=== PATIENT | male | born 1935 | race Caucasian/White ===

== ENCOUNTER 2019-03-25 22:00 | Inpatient (IN) ==
[2019-03-25 23:41] LABS: BASO# 0.02 X1000 (0.0-0.2); BASO% 0.4 % (0.0-0.8); EOS# 0.14 X1000 (0.0-0.7); EOS% 3.1 % (0.0-10.0); HEMATOCRIT 31.7 % (42.0-52.0); HEMOGLOBIN 10.5 g/dL (14.0-18.0); LYMPH# 1.25 X1000 (1.2-3.4); LYMPH% 27.6 % (20.5-51.1); MCH 30.3 PG (27-31); MCHC 33.1 g/dL (33-37); MCV 91.4 FL (81-99); MONO# 0.46 X1000 (0.11-0.59); MONO% 10.2 % (1.7-9.3); MPV 9.7 FL (7.4-10.4); NEUT# 2.66 X1000 (1.4-6.5); NEUT% 58.7 % (42.2-75.2); PLT 196 X1000 (130-400); RBC 3.47 XMIL (4.7-6.1); RDW 13.1 % (11.5-14.5); WBC 4.53 X1000 (4.8-10.8)
[2019-03-26 00:20] LABS: AGAP 10; ALBUMIN 3.9 g/dL (3.5-5.0); ALKALINE PHOSPHATASE 53 U/L (32-122); BUN 25 mg/dL (8-22); CALCIUM 8.5 mg/dL (8.8-10.2); CHLORIDE 108 mmol/L (98-107); COSMO 284; CREATININE 1.1 mg/dL (0.7-1.2); ESTIMATED GFR > 60; GLUCOSE 96 mg/dL (70-104); GOT 19 U/L (10-34); GPT 11 U/L (10-44); POTASSIUM 3.8 mmol/L (3.5-5.1); SODIUM 140 mmol/L (136-145); TCO2 22 mmol/L (25-35); TOTAL PROTEIN 5.9 g/dL (6.3-8.3)
[2019-03-26 00:27] LABS: BILIRUBIN URINE NEGATIVE (NEGATIVE); BLOOD URINE NEGATIVE (NEGATIVE); GLUCOSE URINE NEGATIVE (NEGATIVE); KETONE URINE TRACE mg/dL (NEGATIVE); LEUKOCYTES URINE TRACE (NEGATIVE); NITRITE URINE NEGATIVE (NEGATIVE); PH URINE 6.5; PROTEIN URINE TRACE mg/dL (NEGATIVE); UROBILINOGEN URINE NORMAL
[2019-03-26 00:28] LABS: CLARITY CLEAR (CLEAR); COLOR YELLOW
[2019-03-26 00:30] LABS: URINE BACTERIA 2+ /HFP; URINE CRYSTAL NONE SEEN /HPF; URINE EPITHELIAL CELLS <10 /HPF (<10); URINE SOURCE CLEAN CATCH; URINE WBC <10 /HPF (<10); URINE YEAST NONE SEEN /HPF
--- NOTE | 2019-03-26 01:03 | PROVIDER DOCUMENTATION ---
This chart was entered by Nadine Cole Scribe, acting as scribe for Chiara Sorto MD. HPI-General Adult - General Chief Complaint: General Adult Stated Complaint: HURTING ALL OVER Time Seen by Provider: 03/25/19 22:41 Source: patient Allergies/Adverse Reactions: Patient Allergies Allergy/AdvReac Type Severity Reaction Status Date / Time diltiazem AdvReac RASH Verified 06/14/18 09:15 Home Medications: Home Medication List Medication Instructions Recorded Confirmed Last Taken Type Cholecalciferol (Vitamin D3) 1,000 unit PO DAILY 06/13/18 03/26/19 06/13/18 12:00 History [Vitamin D3] Diphenhydramine [Benadryl] 25 mg PO QHS PRN 06/13/18 03/26/19 06/13/18 21:00 History Fenofibrate 160 mg PO DAILY 06/13/18 03/26/19 06/13/18 07:00 History Folic Acid 1 mg PO DAILY 06/13/18 03/26/19 06/13/18 07:00 History Losartan Potassium [Cozaar] 25 mg PO DAILY 06/13/18 03/26/19 06/13/18 07:00 History Multivit-Min/FA/Lycopen/Lutein 1 each PO DAILY 06/13/18 03/26/19 06/13/18 07:00 History [Centrum Silver Tablet] [place]-3 Fatty Acids/Fish Oil [Fish 1 each PO DAILY 06/13/18 03/26/19 Unknown History Oil 1,000 mg Capsule] Oxycodone HCl/Acetaminophen 1 each PO Q6H PRN 06/13/18 03/26/19 06/12/18 12:00 History [Oxycodone-Acetaminophen 10-325] Ranitidine [Zantac] 150 mg PO BID 06/13/18 03/26/19 06/13/18 18:00 History Tamsulosin [Flomax] 0.4 mg PO DAILY 06/13/18 03/26/19 06/13/18 18:00 History Latanoprost 1 drp BOTH EYES DAILY 03/26/19 03/26/19 Unknown History Warfarin Sodium 3 mg PO QHS 03/26/19 03/26/19 Unknown History - History of Present Illness -Gen Adult Nature of Presenting Problems: 83 yom presents w/daughter at bedside w/cc body aches all over that are intermittent, cough w/minimal brown sputum, and chills x1 wk. pt hasn't taken otc meds. daughter sts pt cannot taken ibuprofen due to being on blood thinners. pt has hx of arthritis. pt followed by dr. fisher and hasn't made appt with her yet. pt was seen in er 1 wk ago for same symptoms. daughter sts her kids go visit pt and his at their home to make sure they're okay. daughter sts they haven't looked into placement w/assisted living or rehab for pt. 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 denies: fever, fatique, night sweats Eyes: reports: no symptoms reported Ears, Nose, Mouth & Throat: reports: no symptoms reported Cardiovascular: reports: no symptoms reported Respiratory: reports: no symptoms reported, cough (minimal productive cough, brown in color). denies: dyspnea on exertion, shortness of breath, wheezing Gastrointestinal: reports: no symptoms reported. denies: diarrhea, nausea, vomiting Genitourinary: reports: no symptoms reported Musculoskeletal: reports: see HPI, other (body aches all over). denies: frequent leg cramps, muscle weakness, neck pain Integumentary: reports: no symptoms reported Neurological: reports: no symptoms reported Psychiatric: reports: no symptoms reported Endocrine: reports: no symptoms reported Hematologic/Lymphatic: reports: no symptoms reported Allergic/Immunologic: reports: no symptoms reported All Other Systems: Reviewed and Negative Past History - Adult - PAST MEDICAL HISTORY-ADULT Review of Records: reports: Old Records Reviewed, Nursing Assessment Review, Medications Reviewed, Social history reviewed & non-contributory. Major Childhood Illnesses: reports: denies history Cardiovascular: reports: A-Fib, HTN Respiratory: reports: denies history Gastrointestinal: reports: denies history Obstetrical/Gynecological: reports: denies history Genitourinary: reports: denies history Musculoskeletal: reports: arthritis Neurological: reports: denies history, other (denies neuropathy) Endocrine/Immune: reports: denies history Other Conditions: reports: denies history - PRIOR SURGERIES/PROCEDURES Surgical/Procedure History: reports: tonsillectomy - IMMUNIZATION STATUS Childhood Immunizations: See Nurse Assessment Flu Vaccine: See Nurse Assessment - FAMILY HISTORY Family History: reviewed, not pertinent - SOCIAL HISTORY Smoking: other (former) Substance Use: none/never Physical Exam-General - PHYSICAL EXAM-ADULT Initial Vital Signs Reviewed: Yes - CONSTITUTIONAL General Appearance: appears well, alert, no apparent distress - EYES Eyes: PERRL/EOMI, pink conjunctivae - HEAD, EARS, NOSE, MOUTH & THROAT HENMT: normocephalic/atraumatic, normal ENT inspection, hearing deficit (left occular implant, pt [place]) - NECK Neck: non-tender, full range of motion, supple, normal inspection - RESPIRATORY Respiratory: chest non-tender, lungs clear, normal breath sounds, no respiratory distress, no accessory muscle use - CARDIOVASCULAR Cardiovascular: normal peripheral pulses, regular rate, rhythm - GASTROINTESTINAL (ABDOMEN) Abdominal Exam: normal bowel sounds, non tender, soft - LYMPHATIC Lymphatic: no adenopathy - MUSCULOSKELETAL Back Exam: normal inspection, no CVA tenderness, no vertebral tenderness Extremity: normal range of motion, non-tender, normal inspection Peripheral Pulses: radial (R): 2+, radial (L): 2+ - SKIN Integumentary: normal color, warm/dry - NEUROLOGIC Neurologic: senior buyer II-XII nml as tested, grossly normal, no motor/sensory deficits - PSYCHIATRIC Psych/Mental Status: normal mood/affect, normal thought content, normal thought process, oriented x 3 Progress - PLAN OF CARE/RESULTS Progress/Plan/Lab Results: Vital Signs - 8 hr 03/25/19 22:04 Temperature 98.1 F Pulse Rate 108 H Respiratory Rate 14 Blood Pressure 123/86 O2 Sat by Pulse Oximetry 98 Patient with slight increase in BUN to 25 and slight dehydration. he lives alone with his elderly who likely is unable to fully care for him. Daughter at bedside does not come over often and sends her teenage sons to check on him. Patient could be weak and deconditioned. Might benefit from inpatient PT evaluation and some iVF. Counseled patient on these options and both daughter and patient agree. Spoke to Dr Wall, who accepted patient for admission. Stable for floor. Result Diagrams: 03/25/19 23:28 03/25/19 23:28 Departure - Departure Date of Disposition Decision: 03/26/19 Time of Disposition Decision: 01:37 DIAGNOSIS: Dehydration, Weakness, Physical deconditioning Disposition: ADMITTED INPATIENT 09 Certified Medical Emergency: Emergent Condition: Stable - Critical Care Note This patient required my direct & personal management of CC.: No Attestation - Physician/ TRANG Attestation Patient care was provided by Advanced Practice Provider:: No The physician spent face to face time with patient:: Yes Advanced Practice Provider documentation review:: Supervising physician onsite and consulted in the evaluation and care of this patient. The physician did have a face to face encounter with the patient. This chart was documented by the indicated scribe, (Nadine Cole Scribe) and accurately reflects the services I performed and decisions made by me, Chiara Perkins MD, as attested by the provider's signature.
[2019-03-26] MEDS ORDERED: NS 1,000 ML IV ONE (01:51)
--- NOTE | 2019-03-26 07:43 | Diag Imaging Result Doc PS360 ---
EXAM: CHEST-PORTABLE - 03/25/2019 HISTORY: pain all over, cough TECHNIQUE: Portable chest COMPARISON: 03/15/2019 FINDINGS: Heart size is normal. There are scattered small granulomas from old granulomatous disease similar to prior. The lungs otherwise appear clear. There is no pleural effusion or pneumothorax identified. IMPRESSION: No evidence of acute disease. Electronically signed by Nathan Valenzuela 03/26/2019 7:41 AM
[2019-03-26 10:08] LABS: AGAP 9; BUN 19 mg/dL (8-22); CALCIUM 8.5 mg/dL (8.8-10.2); CHLORIDE 109 mmol/L (98-107); COSMO 287; CREATININE 0.9 mg/dL (0.7-1.2); ESTIMATED GFR > 60; GLUCOSE 91 mg/dL (70-104); POTASSIUM 3.8 mmol/L (3.5-5.1); SODIUM 143 mmol/L (136-145); TCO2 25 mmol/L (25-35)
[2019-03-26 10:20] LABS: INR 1.34; PROTIME 17.3 Seconds (11.0-16.0)
--- NOTE | 2019-03-26 14:36 | EKG Report ---
Test Performed on : 03/26/2019 2:01:57 PM Test Reason : TACHYCARDIA Blood Pressure : / mmHG Vent. Rate : 109 BPM Atrial Rate : 288 BPM P-R Int : 000 ms QRS Dur : 086 ms QT Int : 346 ms P-R-T Axes : 000 074 074 degrees QTc Int : 465 ms Atrial fibrillation. with rapid ventricular response. Abnormal ECG When compared with ECG of 13-JUN-2018 08:42, Atrial fibrillation. has replaced Junctional rhythm. Vent. rate has increased BY 44 BPM Confirmed by Santhosh Smith MD ([id number]) on 04/04/2019 9:41:01 PM
[2019-03-26] MEDS ORDERED: XOPENEX NEB INH SCH (15:30)
[2019-03-26] MEDS: ATROVENT NEB INH SCH ×3 (16:11→23:26)
[2019-03-26] MEDS ORDERED: LOPRESSOR IV ONE (16:47)
[2019-03-26] MEDS ORDERED: LOPRESSOR ONE (16:52)
--- NOTE | 2019-03-26 16:58 | HISTORY AND PHYSICAL ---
CHIEF COMPLAINT: I just hurt all over. HISTORY OF PRESENT ILLNESS: This is a an 83-year-old gentleman with a history of atrial fibrillation, hypertension and BPH who presents to the emergency room complaining of just aching and hurting all over. He states that he has had intermittent cough with brown sputum and chills over the prior week. He has taken no tksl-abz-xeccebb medications for this. He was seen in the emergency room on March 15 for the same. At that time he was diagnosed with arthritis of his left shoulder and knee and told to follow up with his primary care physician Dr. Cote which he has not done. Chest x-ray revealed no evidence of acute disease. He was afebrile. PAST MEDICAL HISTORY: Atrial fibrillation on chronic anticoagulation, hypertension, osteoarthritis. PAST SURGICAL HISTORY: Back and neck surgery, right shoulder surgery and ocular implants. SOCIAL HISTORY: He lives with his elderly . He does have a daughter with teenage children that live close and the teenage children check on him and his frequently to make sure they are okay. REVIEW OF SYSTEMS: Discussed with the patient with pertinent positives stated in the HPI. He denied any syncope or dizziness, any chest pain, palpitations, any recent weight loss or weight gain, any shortness of breath, cough, shortness of breath, any nausea, vomiting, diarrhea, constipation, any black or bloody vomitus or stools, any hematuria, dysuria, frequency, urgency. PHYSICAL EXAMINATION: GENERAL: This is a 83-year-old gentleman who is sitting up in the bed in no distress. VITAL SIGNS: Blood pressure is 134/84 with a heart rate of 76, respirations are 16, temperature is 98 degrees oral with room air saturations 100%. HEENT: Head is normocephalic, atraumatic. Mucous membranes are moist. NECK: Supple with trachea midline. PROBLEM LIST: 1. Atrial fibrillation with rapid ventricular response. p.o. Lopressor. 2. Bronchitis.Duonebs 3. Hypertension - home meds 4. chronic anticoagulation - daily INR, continue home meds 5. Dementia DVT prophylaxis - continue home med plan discussed with Dr Wall Dictated by DAVE Johnston for Ming Wall MD cc: DAVE Johnston MD [facility]
[2019-03-26] MEDS ORDERED: LOPRESSOR PO ONE (17:22)
[2019-03-26] MEDS: PERCOCET-10 PO PRN (18:24)
--- NOTE | 2019-03-26 19:14 | HISTORY AND PHYSICAL ---
Patient came in today for issues associated with his heart rate. The patient came in for evaluation. He has got pretty significant dementia, I believe, and then he was having issues with complaining of hurting all over. Apparently, he does have a history of atrial fibrillation with rapid ventricular response. This afternoon, day after admission, he had an episode of RVR with heart rates in the 150s. He required IV Lopressor to get his heart rate under control. This seems to be improving. PROBLEM LIST: 1. Atrial fibrillation with rapid ventricular response. We will initiate p.o. Lopressor. Reportedly, he is allergic to Cardizem so we cannot do that. 2. Bronchitis. I have changed his breathing treatments to p.r.n., just because of the wheezing. He has already been anticoagulated because he has got atrial fibrillation chronically. DISPOSITION: Pending his clinical status. We will continue to follow closely. This is a [id number]-[id number] encounter note with Yoanna Morales. cc: Ming Wall MD
[2019-03-26] MEDS: ZANTAC PO SCH (21:29)
[2019-03-26] MEDS: LOPRESSOR PO SCH (21:29)
[2019-03-26] MEDS: COUMADIN PO SCH (21:30)
[2019-03-27] MEDS: LOPRESSOR PO SCH ×4 (02:24→21:17)
[2019-03-27 07:15] LABS: BASO% 0.2 % (0.0-0.8); EOS# 0.14 X1000 (0.0-0.7); EOS% 3.1 % (0.0-10.0); HEMATOCRIT 33.5 % (42.0-52.0); HEMOGLOBIN 10.9 g/dL (14.0-18.0); IMM GRAN% 0.2 % (0.0-0.5); LYMPH# 1.08 X1000 (1.2-3.4); LYMPH% 24.1 % (20.5-51.1); MCH 29.7 PG (27-31); MCHC 32.5 g/dL (33-37); MCV 91.3 FL (81-99); MONO# 0.39 X1000 (0.11-0.59); MONO% 8.7 % (1.7-9.3); MPV 10.4 FL (7.4-10.4); NEUT# 2.85 X1000 (1.4-6.5); NEUT% 63.7 % (42.2-75.2); PLT 204 X1000 (130-400); RBC 3.67 XMIL (4.7-6.1); RDW 13.2 % (11.5-14.5); WBC 4.48 X1000 (4.8-10.8)
[2019-03-27 07:16] LABS: BASO# 0.01 X1000 (0.0-0.2); IMM GRAN# 0.01 X1000 (0.0-0.04)
[2019-03-27 07:28] LABS: AGAP 8; BUN 21 mg/dL (8-22); CALCIUM 8.3 mg/dL (8.8-10.2); CHLORIDE 110 mmol/L (98-107); COSMO 286; ESTIMATED GFR > 60; GLUCOSE 89 mg/dL (70-104); INR 1.25; POTASSIUM 4.2 mmol/L (3.5-5.1); PROTIME 16.3 Seconds (11.0-16.0); SODIUM 142 mmol/L (136-145); TCO2 24 mmol/L (25-35)
[2019-03-27] MEDS: ATROVENT NEB INH SCH ×5 (07:43→22:37)
[2019-03-27] MEDS: FLOMAX PO SCH (08:45)
[2019-03-27] MEDS: COZAAR PO SCH (08:45)
[2019-03-27] MEDS: FOLIC ACID PO SCH (08:45)
[2019-03-27] MEDS: VITAMIN D PO SCH (08:45)
[2019-03-27] MEDS: TRICOR PO SCH (08:45)
[2019-03-27] MEDS: FISH OIL CONCENTRATE PO SCH (08:45)
[2019-03-27] MEDS: THERA M PLUS PO SCH (08:45)
[2019-03-27] MEDS: XALATAN 0.005% OPH SOLN BOTH EYES SCH (08:46)
[2019-03-27] MEDS: ZANTAC PO SCH ×2 (08:46→21:17)
--- NOTE | 2019-03-27 19:59 | PROGRESS NOTE ---
DATE: 03/27/2019 SUBJECTIVE: The patient has no new complaints. PHYSICAL EXAM: Temperature 97.8, pulse 77, respiratory 18, BP 148/90.General: Patient is awake, alert. He is in no distress. HEENT: Normocephalic. Neck: Supple. Cardiovascular: Irregular rhythm currently rate controlled. Chest: Clear. Nonlabored. No wheezing. Abdomen: Soft, nondistended. Extremities: Moves all extremities. ASSESSMENT: 1. Atrial fibrillation with rapid ventricular response currently back to rate control. 2. Bronchitis. 3. Hypertension. 4. Dementia. PLAN: We will continue patient in the hospital today continue treatment. Hopefully, he can be discharged home over the next day or two. cc: Jack London MD
[2019-03-27] MEDS: COUMADIN PO SCH (21:17)
[2019-03-28] MEDS: PERCOCET-10 PO PRN (03:26)
[2019-03-28] MEDS: LOPRESSOR PO SCH ×3 (03:26→14:34)
[2019-03-28 07:03] LABS: INR 1.28; PROTIME 16.6 Seconds (11.0-16.0)
[2019-03-28 07:04] LABS: AGAP 9; BUN 20 mg/dL (8-22); CALCIUM 8.5 mg/dL (8.8-10.2); CHLORIDE 109 mmol/L (98-107); COSMO 285; CREATININE 1.1 mg/dL (0.7-1.2); ESTIMATED GFR > 60; GLUCOSE 89 mg/dL (70-104); POTASSIUM 4.1 mmol/L (3.5-5.1); SODIUM 142 mmol/L (136-145); TCO2 24 mmol/L (25-35)
[2019-03-28 07:13] LABS: BASO# 0.02 X1000 (0.0-0.2); BASO% 0.4 % (0.0-0.8); EOS# 0.18 X1000 (0.0-0.7); EOS% 3.2 % (0.0-10.0); HEMATOCRIT 34.5 % (42.0-52.0); HEMOGLOBIN 11.3 g/dL (14.0-18.0); IMM GRAN# 0.01 X1000 (0.0-0.04); IMM GRAN% 0.2 % (0.0-0.5); LYMPH# 1.45 X1000 (1.2-3.4); LYMPH% 25.5 % (20.5-51.1); MCH 29.7 PG (27-31); MCHC 32.8 g/dL (33-37); MCV 90.6 FL (81-99); MONO# 0.53 X1000 (0.11-0.59); MONO% 9.3 % (1.7-9.3); MPV 10.3 FL (7.4-10.4); NEUT# 3.49 X1000 (1.4-6.5); NEUT% 61.4 % (42.2-75.2); PLT 216 X1000 (130-400); RBC 3.81 XMIL (4.7-6.1); RDW 13.2 % (11.5-14.5); WBC 5.68 X1000 (4.8-10.8)
[2019-03-28] MEDS: ATROVENT NEB INH SCH ×5 (07:38→22:59)
[2019-03-28] MEDS: XOPENEX NEB INH PRN ×3 (07:38→14:46)
[2019-03-28] MEDS: ZANTAC PO SCH (09:59)
[2019-03-28] MEDS: FLOMAX PO SCH (09:59)
[2019-03-28] MEDS: FOLIC ACID PO SCH (09:59)
[2019-03-28] MEDS: COZAAR PO SCH (10:00)
[2019-03-28] MEDS: TRICOR PO SCH (10:00)
[2019-03-28] MEDS: VITAMIN D PO SCH (10:00)
[2019-03-28] MEDS: FISH OIL CONCENTRATE PO SCH (10:00)
[2019-03-28] MEDS: THERA M PLUS PO SCH (10:00)
[2019-03-28] MEDS: XALATAN 0.005% OPH SOLN BOTH EYES SCH (10:20)
[2019-03-28] MEDS ORDERED: BENADRYL IV PRN (18:43)
[2019-03-28] MEDS: HALDOL IV PRN (18:51)
--- NOTE | 2019-03-28 19:54 | PROGRESS NOTE ---
DATE: 03/28/2019 SUBJECTIVE: Patient has no complaints. States he is feeling fine. Denies any fevers or chills. PHYSICAL EXAMINATION: Temperature 98, pulse 88, respiratory 18, BP 140/88.General: Patient is awake, alert. He is in no distress. HEENT: Normocephalic. Neck: Supple. Cardiovascular: Irregular rhythm, regular rate. Chest: Clear, nonlabored. Abdomen: Soft, nondistended. Extremities: Moves all extremities. ASSESSMENT: 1. Atrial fibrillation. Currently, rate controlled. 2. Bronchitis. 3. Hypertension. 4. Dementia. PLAN: We will continue patient in the hospital. We will ask Credit Risk Manager for assistance on discharge planning to rehab and will follow. cc: Jack London MD
[2019-03-29] MEDS: BENADRYL IV PRN (01:41)
[2019-03-29] MEDS ORDERED: STERILE WATER INJ. INJ PRN (01:41)
[2019-03-29] MEDS: HALDOL IV PRN (01:42)
[2019-03-29] MEDS: LOPRESSOR PO SCH ×5 (01:45→20:06)
[2019-03-29] MEDS: ZANTAC PO SCH ×3 (01:46→20:06)
[2019-03-29] MEDS: COUMADIN PO SCH ×2 (01:46→20:06)
[2019-03-29] MEDS: ATIVAN IV PRN (02:02)
[2019-03-29 06:37] LABS: BASO# 0.01 X1000 (0.0-0.2); BASO% 0.2 % (0.0-0.8); EOS# 0.11 X1000 (0.0-0.7); EOS% 1.7 % (0.0-10.0); HEMATOCRIT 34.4 % (42.0-52.0); HEMOGLOBIN 11.2 g/dL (14.0-18.0); IMM GRAN# 0.01 X1000 (0.0-0.04); IMM GRAN% 0.2 % (0.0-0.5); LYMPH# 1.68 X1000 (1.2-3.4); LYMPH% 25.9 % (20.5-51.1); MCH 29.4 PG (27-31); MCHC 32.6 g/dL (33-37); MCV 90.3 FL (81-99); MONO# 0.61 X1000 (0.11-0.59); MONO% 9.4 % (1.7-9.3); MPV 10.6 FL (7.4-10.4); NEUT# 4.06 X1000 (1.4-6.5); NEUT% 62.6 % (42.2-75.2); PLT 210 X1000 (130-400); RBC 3.81 XMIL (4.7-6.1); RDW 13.3 % (11.5-14.5); WBC 6.48 X1000 (4.8-10.8)
[2019-03-29 06:53] LABS: INR 1.32
[2019-03-29 07:00] LABS: AGAP 10; BUN 17 mg/dL (8-22); CHLORIDE 110 mmol/L (98-107); COSMO 288; CREATININE 1.1 mg/dL (0.7-1.2); ESTIMATED GFR > 60; GLUCOSE 92 mg/dL (70-104); POTASSIUM 3.8 mmol/L (3.5-5.1); SODIUM 144 mmol/L (136-145); TCO2 24 mmol/L (25-35)
[2019-03-29] MEDS: VITAMIN D PO SCH (10:34)
[2019-03-29] MEDS: FLOMAX PO SCH (10:35)
[2019-03-29] MEDS: XALATAN 0.005% OPH SOLN BOTH EYES SCH (10:35)
[2019-03-29] MEDS: TRICOR PO SCH (10:35)
[2019-03-29] MEDS: FISH OIL CONCENTRATE PO SCH (10:35)
[2019-03-29] MEDS: THERA M PLUS PO SCH (10:35)
[2019-03-29] MEDS: COZAAR PO SCH (10:36)
[2019-03-29] MEDS: FOLIC ACID PO SCH (10:36)
[2019-03-29] MEDS: ATROVENT NEB INH SCH ×4 (16:08→23:53)
[2019-03-29] MEDS ORDERED: ARICEPT PO ONE (17:37)
--- NOTE | 2019-03-29 19:51 | PROGRESS NOTE ---
DATE: 03/29/2019 SUBJECTIVE: The patient has no new complaints. He does get agitated sometimes at night. OBJECTIVE: Temperature 98.3 degrees, pulse 83, respiratory 18, BP 170/65.General: The patient is awake and alert, currently in no distress. Cardiovascular: Regular rate. Chest clear, nonlabored. Abdomen soft, nondistended. Extremities: Moves all extremities. Neurologic: No changes. ASSESSMENT: 1. Dementia with behavioral changes. 2. Bronchitis, improved. 3. Hypertension. 4. Atrial fibrillation, currently rate-controlled. PLAN: We will continue the patient in the hospital. Continue to follow. Further orders as needed. Hopefully can transition to either rehab or [place]. cc: Jack London MD
[2019-03-29 20:15] LABS: BILIRUBIN URINE NEGATIVE (NEGATIVE); BLOOD URINE NEGATIVE (NEGATIVE); CLARITY CLEAR (CLEAR); COLOR YELLOW; GLUCOSE URINE NEGATIVE (NEGATIVE); KETONE URINE NEGATIVE (NEGATIVE); LEUKOCYTES URINE NEGATIVE (NEGATIVE); NITRITE URINE NEGATIVE (NEGATIVE); PH URINE 6.5; PROTEIN URINE NEGATIVE (NEGATIVE); SP GRAVITY URINE 1.015; UROBILINOGEN URINE NORMAL
[2019-03-29 20:48] LABS: URINE BACTERIA 1+ /HFP; URINE EPITHELIAL CELLS <10 /HPF (<10)
[2019-03-29 20:49] LABS: URINE CAST NONE SEEN /LPF; URINE CRYSTAL NONE SEEN /HPF; URINE SOURCE CLEAN CATCH; URINE WBC <10 /HPF (<10); URINE YEAST NONE SEEN /HPF
[2019-03-30] MEDS: LOPRESSOR PO SCH ×4 (03:37→21:00)
[2019-03-30] MEDS: ATROVENT NEB INH SCH ×5 (08:55→23:00)
[2019-03-30] MEDS: ZANTAC PO SCH ×2 (11:14→21:00)
[2019-03-30] MEDS: TRICOR PO SCH (11:14)
[2019-03-30] MEDS: COZAAR PO SCH (11:14)
[2019-03-30] MEDS: FISH OIL CONCENTRATE PO SCH (11:15)
[2019-03-30] MEDS: VITAMIN D PO SCH (11:15)
[2019-03-30] MEDS: ARICEPT PO SCH (11:15)
[2019-03-30] MEDS: THERA M PLUS PO SCH (11:15)
[2019-03-30] MEDS: FOLIC ACID PO SCH (11:15)
[2019-03-30] MEDS: FLOMAX PO SCH (11:15)
[2019-03-30] MEDS: XALATAN 0.005% OPH SOLN BOTH EYES SCH (14:13)
--- NOTE | 2019-03-30 19:26 | PROGRESS NOTE ---
DATE: 03/30/2019 SUBJECTIVE: The patient is sleeping this morning. He does arouse to stimuli. No complaints noted. PHYSICAL EXAMINATION: Vital Signs: Temperature 97.8 degrees, pulse 73, respiratory 18, blood pressure 155/80. General: Patient is awake, currently in no distress. He is asleep. He does arouse to stimuli. He is in no respiratory distress. HEENT: Normocephalic. Neck: Supple. Cardiovascular: Rate controlled. Chest: Clear, nonlabored, no wheezing. Good air movement. Abdomen: Soft, nondistended. Extremities: He is noted to move all extremities. Neurologic: Unable to assess due to patient's somnolence. ASSESSMENT: 1. Atrial fibrillation currently rate controlled. 2. Bronchitis stable. 3. Hypertension stable. 4. Dementia with behavioral disturbances. We started him on Aricept. We will ask Mimi Quijano for assistance. cc: Jack London MD
[2019-03-30] MEDS: COUMADIN PO SCH (20:30)
[2019-03-31] MEDS: PERCOCET-10 PO PRN ×2 (01:14→21:48)
[2019-03-31] MEDS: LOPRESSOR PO SCH ×4 (01:14→20:06)
[2019-03-31] MEDS: ATROVENT NEB INH SCH ×5 (07:33→22:57)
[2019-03-31] MEDS: ZANTAC PO SCH ×2 (08:35→20:06)
[2019-03-31] MEDS: THERA M PLUS PO SCH (08:35)
[2019-03-31] MEDS: COZAAR PO SCH (08:35)
[2019-03-31] MEDS: VITAMIN D PO SCH (08:35)
[2019-03-31] MEDS: ARICEPT PO SCH (08:35)
[2019-03-31] MEDS: FISH OIL CONCENTRATE PO SCH (08:36)
[2019-03-31] MEDS: FLOMAX PO SCH (08:36)
[2019-03-31] MEDS: FOLIC ACID PO SCH (08:36)
[2019-03-31] MEDS: XALATAN 0.005% OPH SOLN BOTH EYES SCH (08:36)
[2019-03-31] MEDS: TRICOR PO SCH (08:36)
[2019-03-31] MEDS ORDERED: XOPENEX NEB INH PRN (09:07)
--- NOTE | 2019-03-31 19:09 | PROGRESS NOTE ---
DATE: 03/31/2019 SUBJECTIVE: Patient without complaints. OBJECTIVE: Vital signs reviewed. Temperature 98 degrees, pulse 69, respiratory 20, BP 157/70.General: The patient is in no distress. Cardiovascular: Regular rate. Chest clear. Abdomen soft. Extremities: Moves all extremities. ASSESSMENT: 1. Atrial fibrillation, currently rate controlled. 2. Bronchitis, stable. 3. Dementia with behavioral issues, although currently he is stable and calm. PLAN: We have consulted Mimi Quijano for assistance, and hopefully can transition either to [place] or to rehab. cc: Jack London MD
[2019-03-31] MEDS: COUMADIN PO SCH (20:06)
[2019-03-31] MEDS: BENADRYL PO PRN (21:48)
[2019-03-31] MEDS: ATIVAN IV PRN (23:22)
[2019-04-01] MEDS: GEODON IM PRN ×2 (00:10→22:50)
[2019-04-01] MEDS: LOPRESSOR PO SCH ×4 (03:14→20:35)
[2019-04-01] MEDS: BENADRYL IV PRN ×2 (04:23→20:40)
[2019-04-01] MEDS: ATROVENT NEB INH SCH ×5 (07:42→22:59)
[2019-04-01] MEDS: VITAMIN D PO SCH (08:26)
[2019-04-01] MEDS: TRICOR PO SCH (08:26)
[2019-04-01] MEDS: FISH OIL CONCENTRATE PO SCH (08:26)
[2019-04-01] MEDS: ARICEPT PO SCH (08:26)
[2019-04-01] MEDS: FOLIC ACID PO SCH (08:26)
[2019-04-01] MEDS: FLOMAX PO SCH (08:26)
[2019-04-01] MEDS: COZAAR PO SCH (08:26)
[2019-04-01] MEDS: THERA M PLUS PO SCH (08:27)
[2019-04-01] MEDS: ZANTAC PO SCH ×2 (08:27→22:48)
[2019-04-01] MEDS: XALATAN 0.005% OPH SOLN BOTH EYES SCH (08:27)
--- NOTE | 2019-04-01 14:05 | PROGRESS NOTE ---
DATE: 04/01/2019 SUBJECTIVE: Patient has no new complaints. PHYSICAL EXAMINATION: Vital Signs: Reviewed. Temperature 97 degrees, pulse 66, respiratory rate 18, BP 129/70. General: Patient is sleeping but arousable. He is in no distress. HEENT: Normocephalic. Neck: Supple. Cardiovascular: Regular rate. Chest: Clear. Abdomen: Soft. Extremities: Moves all extremities. ASSESSMENT: 1. Dementia. 2. Adult failure to thrive. 3. Atrial fibrillation, currently rate controlled. 4. Bronchitis. PLAN: We will continue patient in the hospital. Continue symptomatic care. Further orders as needed. Hopefully can transition to rehab in the next cc: Jack London MD MTDD
[2019-04-01] MEDS: BENADRYL PO PRN (20:39)
[2019-04-01] MEDS: HALDOL IV PRN (20:40)
[2019-04-01] MEDS: COUMADIN PO SCH (22:48)
[2019-04-02] MEDS: LOPRESSOR PO SCH ×3 (03:38→13:08)
[2019-04-02 07:21] VITALS: BP 163/55
[2019-04-02] MEDS: ATROVENT NEB INH SCH ×4 (08:01→15:08)
[2019-04-02] MEDS ORDERED: COZAAR PO SCH (09:00)
[2019-04-02] MEDS: THERA M PLUS PO SCH (09:26)
[2019-04-02] MEDS: ZANTAC PO SCH (09:26)
[2019-04-02] MEDS: FISH OIL CONCENTRATE PO SCH (09:26)
[2019-04-02] MEDS: VITAMIN D PO SCH (09:26)
[2019-04-02] MEDS: FLOMAX PO SCH (09:26)
[2019-04-02] MEDS: FOLIC ACID PO SCH (09:26)
[2019-04-02] MEDS: ARICEPT PO SCH (09:26)
[2019-04-02] MEDS: TRICOR PO SCH (09:26)
[2019-04-02] MEDS: XALATAN 0.005% OPH SOLN BOTH EYES SCH (09:26)
--- NOTE | 2019-04-02 14:24 | DISCHARGE SUMMARY ---
ADMISSION DATE: 03/26/2019 DISCHARGE DATE: 04/02/2019 ADMISSION DIAGNOSES: 1. Atrial fibrillation with rapid ventricular response. 2. Bronchitis. 3. Hypertension. 4. Chronic anticoagulation. 5. Dementia. 6. Alcoholism. DISCHARGE DIAGNOSES: 1. Dementia. 2. Adult failure to thrive. 3. Atrial fibrillation, currently rate controlled. 4. Bronchitis. CONSULTATIONS: None. SURGERIES AND PROCEDURES: None. HOSPITAL COURSE: On 03/25/2019 just before midnight, Mr. Fredy Harrington presented to the emergency department here at [facility] with complaints of hurting all over. He has a history of atrial fibrillation, BPH, hypertension, and essentially just presented with these complaints of generalized aching all over. He had been having intermittent cough with brown phlegm, chills over the week prior to admission which he took no zikm-ocf-oamckeu medications for. A chest x-ray did not reveal any acute disease. His heart rate was anywhere from 100s to 110s when he first presented. He was initiated on Lopressor every 6 hours, which controlled the heart rate in the range of 60s. Blood pressure still remained somewhat elevated mostly in the 150s. He was also diagnosed with bronchitis and initiated on nebulizers. The fact that he has a history of atrial fibrillation he was continued on Coumadin. INR remained somewhat subtherapeutic anywhere from 1.25 up to 1.34, so upon discharge, he will have another level drawn in 3 days. Over time, the bronchitis improved. The rate remained controlled. He did start having a little bit of behavioral disturbances with his dementia, and he was initiated on Aricept which has improved his behavior. VITAL SIGNS: Temperature 97.8 degrees, heart rate 67, respiratory rate 14, blood pressure 163/55, O2 saturation 100% on room air. DISCHARGE LABORATORY DATA: His last set of lab data was back on the 29 of March. White blood cells 6000, hemoglobin 11, hematocrit 34, platelet count 210,000. INR is 1.32. Sodium 144, potassium 3.8, BUN 17, creatinine is 1.1, glucose 92, calcium 9.0. Urinalysis normal. PERTINENT IMAGING: Chest x-ray on the : No acute disease. No other imaging. DIAGNOSTIC STUDIES: EKG showed atrial fibrillation with RVR, rate 109. DISCHARGE MEDICATIONS: 1. Benadryl 25 mg p.o. nightly p.r.n. 2. Coumadin 3 mg p.o. nightly. 3. Multivitamin once daily. 4. Fenofibrate 160 mg p.o. daily. 5. Fish oil once p.o. daily. 6. Flomax 0.4 mg p.o. daily. 7. Folic acid 1 mg p.o. daily. 8. Latanoprost 1 drop both eyes. 9. Vitamin D3, 1000 units p.o. daily. 10. Zantac 150 mg p.o. twice daily. 11. Metoprolol 25 mg p.o. every 6 hours scheduled. 12. Aricept 10 mg p.o. daily. 13. Atrovent 0.5 mg nebulizers. 14. Cozaar 50 mg p.o. daily. 15. Percocet 1 tablet p.o. every 6 hours p.r.n. DIET: Heart healthy with Ensure. ACTIVITY: As tolerated. DISCHARGE PHYSICIAN FOLLOW-UP: None, except for primary care provider which would Shelly Cote MD. DISCHARGE INSTRUCTIONS: If your condition changes, contact your physician and/or return to the emergency department. Changes may include, but are not limited to, shortness of breath, increased fatigue,. excessive bleeding, unexplained weight loss or gain, unimaginable pain, signs or symptoms of infection. DISCHARGE DISPOSITION: [facility] and Rehab. Dictated by DAVE Ng for Jack London MD cc: DAVE Ng MD Kathy J. Sparacino, MD
--- NOTE | 2019-04-03 21:26 | DISCHARGE SUMMARY ---
ADMISSION DATE: 03/26/2019 DISCHARGE DATE: 04/02/2019 ADDENDUM: Patient seen and examined by myself. Full note dictated and discussed with nurse practitioner. On discharge, patient is stable. He is still confused, but this is chronic due to his dementia. He was admitted to the hospital, noted to be in atrial fibrillation with RVR. For the last several days, he has been fairly persistent with atrial fibrillation, rate controlled. Did have some behavioral issues during the hospital stay secondary to his dementia, but these were easily controlled. Blood pressures were elevated. He was started on losartan 50 daily. Please see full note. cc: Jack London MD
== END 2019-04-02 16:13 | DRG 309 ==
LOC: P.MEDSURG 22:00 → P.ED 22:00 → SUATTDRO 03-26 03:22 → OBSVTOIN 03-26 03:22 → P.MEDSURG 03-28 06:41
PROVIDERS: ATTEND Family Medicine
CPT/HCPCS: 71010; 71045; 80048; 80053; 81001; 82550; 84484; 85025; 85610; 87088; 93005; 93010; 94640; 94761; 94799; 96360; 96361; 97162; 99285; A9270; J1200; J1630; J2060; J3486; J7030